=== PATIENT | female | born 1975 | race Caucasian/White ===

== ENCOUNTER → 2023-06-17 15:09 | Outpatient (CLI) | payer OTHER, SELFPAY | PROVIDERS: PCP Nurse Practitioner; Visit Provider Nurse Practitioner | DX: H92.11 Otorrhea, right ear (principal); B95.7 Other staphylococcus as the cause of diseases classified elsewhere | CPT/HCPCS: 87070; 87077; 87186; 87205 ==

== ENCOUNTER → 2023-06-17 16:05 | Outpatient (CLI) | payer OTHER, SELFPAY | PROVIDERS: Visit Provider Nurse Practitioner | DX: H92.11 Otorrhea, right ear (principal) ==